=== PATIENT | male | born 1980 | race Hispanic/Latino ===

== ENCOUNTER 2016-06-05 15:59 | Emergency (ER) | payer OTHER ==
[~2016-06-05] VITALS: Ht 177.8 cm; Wt 101.6 kg
[2016-06-05 16:07] VITALS: BP 135/87
--- NOTE | 2016-06-05 16:17 | ED DYSPNEA/ASTHMA COMPLAINT ---
History of Present Illness General Chief Complaint: Dyspnea (COPD, CHF, Other) Stated Complaint: ?ASTHMA/SO Source: patient, old records Exam Limitations: no limitations Vital Signs & Intake/Output Vital Signs & Intake/Output Vital Signs Date Time Temp Pulse Resp B/P Pulse O2 O2 Flow FiO2 Ox Delivery Rate 06/05 1607 98.1 86 18 135/87 98 Room Air Allergies Coded Allergies: MDX - PCN (penicillin) (PCN (PENICILLIN)) (04/15/11) MDX - Seafood (SEAFOOD) (04/15/11) Reconcile Medications Albuterol Sulfate (Proair Hfa) 90 MCG HFA.AER.AD 2 PUF INH Q4-6 PRN PRN wheezing Methylprednisolone. (Medrol) 4 MG TAB.DS.PK 1 DP PO AD asthma 6 on day 1 then reduce by one tablet daily until gone Robitussin AC (Guaifenesin-Codeine Syrup) 200 MG-20 MG/10 ML LIQUID 10 ML PO Q6HR PRN COUGH Triage Note: PT STATES THAT HE HAS ASTHMA AND THAT IT HAS BEEN BOTHERING HIM . STATES THAT HE RAN OUT OF HIS INHALERS. NO WHEEZING NOTED Triage Nurses Notes Reviewed? yes Onset: Gradual Duration: constant Timing: recent history Severity: mild Activities at Onset: none Associated Symptoms: cough HPI: 36-year-old male with history of asthma presents for a 1 day history of wheezing and nonproductive cough since last night. He states he has not had a flareup of his asthma in several months. He does not have any inhalers at home and is requesting a refill today. There's been no fever no chills no shortness of breath. The patient denies any symptoms at this time no chest pain no sick contacts he reports his cough is nonproductive. He does not smoke. He has never been hospitalized due to his asthma. No abdominal pain nausea vomiting or diarrhea. Past History Travel History Traveled to [place] past 21 day No Medical History Any Pertinent Medical History? 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 No Review of Systems Review of Systems Constitutional: Reports: see HPI. All Other Systems: Reviewed and Negative Comments Review of systems: See HPI, All other systems negative. Constitutional, no chills no fever, no malaise HEENT: No visual changes no sore throat no congestion Cardiovascular: No chest pain , no palpitation Skin, no rashes, no change in skin Respiratory: No dyspnea cough no sputum GI: No nausea no vomiting, no diarrhea : No dysuria No hematuria, Muscle skeletal: No joint pain, no back pain, no neck pain, Neurologic: No numbness no headache Psych: No stress Heme/endocrine: No bruising no bleeding Immunology: No lymphadenopathY Physical Exam Physical Exam General Appearance: well developed/nourished, no apparent distress, alert Respiratory: normal breath sounds, no respiratory distress Comments: Well-developed well-nourished patient in no apparent distress. Head/Face: Atraumatic, no maxillary/frontal sinus tenderness, no facial swelling Eyes: PERRL, EOMI, no conjunctival injection. No nystagmus Ear:External auditory canal and Tympanic membranes clear, no erythema, no FB. Nose: atraumatic.Normal inspection Throat: Moist mucous membranes.Pharynx normal. No pharyngeal erythema/exudate seen. No stridor/drooling or assymetry. No swelling or edema. Neck: Supple, no lymphadenopathy, FROM Back: FROM, Nontender Cardiovascular: Regular rate and rhythms no murmurs rubs Respiratory: No respiratory distress. Patient speaking in full complete sentences. Breath sounds clear to auscultation bilaterally: NO W/R/R Extremities: full range of motion Neuro: Alert and oriented x3 Skin: Warm & dry;No appreciable rash on exposed skin Psych: Mood affect normal, normal memory normal judgment. Core Measures ACS in differential dx? No Severe Sepsis Present: No Septic Shock Present: No Progress Differential Diagnosis: asthma, AMI, bronchitis, musculoskeletal pain, pneumonia , pneumothorax Plan of Care: Patient clinically appears well speaking in full complete sentences. Lungs are clear to auscultation patient denies any symptoms at this time prescriptions for Medrol Dosepak and albuterol inhaler provided. I advised supportive care follow up with primary care doctor within concerns answered all his questions cleared for discharge Initial ED EKG: none Departure Departure Time of Disposition: 1623 Disposition: HOME OR SELF CARE Condition: Stable Clinical Impression Primary Impression: Asthma Secondary Impressions: Medication refill Referrals: PATIENT HAS NO PRIMARY CARE DR (PCP/Family) Additional Instructions: Pro-air inhaler as directed. Medrol Dosepak as directed Robitussin with codeine for cough this may make you drowsy. Follow-up with your primary care physician or return with any concerns. These prescriptions [facility] [place] Departure Forms: Customer Survey General Discharge Information Prescriptions: Current Visit Scripts Methylprednisolone. (Medrol) 1 DP PO AD #1 DP 6 on day 1 then reduce by one tablet daily until gone Albuterol Sulfate (Proair Hfa) 2 PUF INH Q4-6 PRN PRN wheezing #1 INHAL Robitussin AC (Guaifenesin-Codeine Syrup) 10 ML PO Q6HR PRN COUGH #200 ML Critical Care Note Critical Care Note Critical Care Time: non-applicable
[2016-06-05] MEDS ORDERED: MEDROL4 M2 PO ×2 (16:25→16:29)
[2016-06-05] MEDS ORDERED: GUAIFENESIN-COD10 ML PO ×2 (16:25→16:29)
[2016-06-05] MEDS ORDERED: PROAIR HFA8.5 GM INH ×2 (16:25→16:29)
== END 2016-06-05 16:33 ==
LOC: ERH 15:59
DX: J45.909 Unspecified asthma, uncomplicated (principal); Z76.0 Encounter for issue of repeat prescription
CPT/HCPCS: 99281

== ENCOUNTER 2016-09-11 15:27 | Emergency (ER) | payer OTHER ==
[~2016-09-11] VITALS: Ht 177.8 cm; Wt 108.9 kg
[~2016-09-11 15:27] MED LIST: GUAIFENESIN-COD10 ML PO; MEDROL4 M2 PO; PROAIR HFA8.5 GM INH
[2016-09-11 15:36] VITALS: BP 134/89
--- NOTE | 2016-09-11 16:18 | ED INFLUENZA/URI COMPLAINT ---
History of Present Illness General Chief Complaint: Upper Respiratory Sx/Fever Stated Complaint: URI Source: patient, old records Exam Limitations: no limitations Vital Signs & Intake/Output Vital Signs & Intake/Output Vital Signs Date Time Temp Pulse Resp B/P Pulse O2 O2 Flow FiO2 Ox Delivery Rate 09/11 1627 97 09/11 1536 98.8 90 18 134/89 98 Room Air ED Intake and Output 09/12 0000 09/11 1200 Intake Total 0 Output Total Balance 0 Intake, Oral 0 Patient 240 lb Weight Allergies Coded Allergies: MDX - PCN (penicillin) (PCN (PENICILLIN)) (04/15/11) MDX - Seafood (SEAFOOD) (04/15/11) Reconcile Medications Albuterol Sulfate (Proair Hfa) 90 MCG HFA.AER.AD 2 PUF INH Q4-6 PRN PRN wheezing Albuterol Sulfate (Ventolin Hfa) 90 MCG HFA.AER.AD 2 PUF INH Q4-6 PRN PRN WHEEZING/SHORTNESS OF BREATH Benzonatate 200 MG CAPSULE 1 CAP PO TID PRN cough Methylprednisolone. (Medrol) 4 MG TAB.DS.PK 1 DP PO AD asthma 6 on day 1 then reduce by one tablet daily until gone Methylprednisolone. (Medrol) 4 MG TAB.DS.PK 1 DP PO AD breathing Robitussin AC (Guaifenesin-Codeine Syrup) 200 MG-20 MG/10 ML LIQUID 10 ML PO Q6HR PRN COUGH Triage Note: PT COMPLAINS OF COUGH SINCE SUNDAY. NON PRODUCTIVE Triage Nurses Notes Reviewed? yes HPI: Patient is a 36-year-old male presents complaining of cough 2 days. Cough with clear sputum production. Episodes of posttussive vomiting that is clear. Mild right ear pain. Patient has a history of asthma, reports that he has been wheezing and having dyspnea. Patient ran out of his inhaler. Patient denies fevers. (ANA UMAÑA,REBECCA) Past History Travel History Traveled to [place] past 21 day No Medical History Any Pertinent Medical History? 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 No (REBECCA NAJERA) Review of Systems Review of Systems Constitutional: Denies: chills, fever. EENTM: Reports: ear pain (right ear). Respiratory: Reports: cough, short of breath, wheezing. Cardiovascular: Reports: no symptoms. GI: Reports: no symptoms. Genitourinary: Reports: no symptoms. Musculoskeletal: Reports: no symptoms. Skin: Reports: no symptoms. Neurological/Psychological: Reports: no symptoms. Hematologic/Endocrine: Reports: no symptoms. Immunologic/Allergic: Reports: no symptoms. (REBECCA NAJERA) Physical Exam Physical Exam General Appearance: well developed/nourished, alert, awake Head: atraumatic, normal appearance Eyes: Bilateral: normal appearance, PERRL, EOMI. Ears, Nose, Throat: normal ENT inspection, moist mucous membrane, hearing grossly normal, Tympanic normal, pharynx normal Neck: normal inspection, supple, full range of motion, lymphadenopathy (L) ( anterior cervical) Respiratory: normal breath sounds, chest non-tender, no respiratory distress, lungs clear Cardiovascular: regular rate/rhythm Gastrointestinal: soft, non-tender Back: normal inspection, normal range of motion Extremities: normal inspection, normal capillary refill, normal range of motion, no edema Neurologic/Psych: no motor/sensory deficits, awake, alert, oriented x 3, normal gait, normal mood/affect Skin: intact, normal color, warm/dry Lymphatic: left anterior cervical lymphadenopathy Core Measures Severe Sepsis Present: No Septic Shock Present: No (REBECCA NAJERA) Progress Differential Diagnosis: influenza, meningitis, otitis, pneumonia, pharyngitis, sinusitis, bronchitis Plan of Care: Patient afebrile, nontoxic appearing. No adventitious breath sounds on exam. Patient reports that he has been wheezing at home. I suspect that this is viral in etiology and presentation and exam. Appears stable for discharge. Initial ED EKG: none (REBECCA NAJERA) Departure Departure Time of Disposition: 1620 Disposition: HOME OR SELF CARE Condition: Stable Clinical Impression Primary Impression: Viral upper respiratory tract infection with cough Referrals: PATIENT HAS NO PRIMARY CARE DR (PCP/Family) Additional Instructions: Drink plenty fluids and rest. Return to the emergency department if difficulty breathing, unable to say hydrated, or worsening of symptoms. Departure Forms: Customer Survey General Discharge Information Prescriptions: Current Visit Scripts Benzonatate 1 CAP PO TID PRN cough #30 CAP Albuterol Sulfate (Ventolin Hfa) 2 PUF INH Q4-6 PRN PRN WHEEZING/SHORTNESS OF BREATH #1 INHAL Methylprednisolone. (Medrol) 1 DP PO AD #1 DP (REBECCA NAJERA) PA/FRENCH INSTRUCTOR Co-Sign Statement Statement: ED Attending supervision documentation- [] I saw and evaluated the patient. I have also reviewed all the pertinent lab results and diagnostic results. I agree with the findings and the plan of care as documented in the PA's/FRENCH INSTRUCTOR's documentation. [X] I have reviewed the ED Record and agree with the PA's/FRENCH INSTRUCTOR's documentation. [] Additions or exceptions (if any) to the PAs/FRENCH INSTRUCTOR's note and plan are summarized below: [] (GEGE JADE,JAQUELINE)
[2016-09-11] MEDS ORDERED: MEDROL4 M2 PO (16:22)
[2016-09-11] MEDS ORDERED: VENTOLIN HFA18 GM INH (16:22)
[2016-09-11] MEDS ORDERED: BENZONATATE200 M1 PO (16:22)
== END 2016-09-11 16:20 ==
LOC: ERH 15:27
DX: J06.9 Acute upper respiratory infection, unspecified (principal)